=== PATIENT | female | born 1980 ===

== ENCOUNTER 2016-09-02 07:48 | Day surgery (SDC) | payer OTHER ==
[2016-09-02] MEDS ORDERED: Lactated Ringer's 500 ML IV ONE ×2 (09:02→09:10)
[2016-09-02 09:18] VITALS: O2SAT 100
[2016-09-02] MEDS ORDERED: Midazolam 2 MG/2 ML VIAL ONE (11:16)
[2016-09-02] MEDS ORDERED: Propofol 10 mg/ml Inj (20 ML) ONE (11:16)
[2016-09-02 11:52] VITALS: TEMP 97
[2016-09-02 12:02] VITALS: BP 135/74; PULSE 84; RESP 18
== END 2016-09-02 12:25 | disposition home or self-care (01) ==
LOC: H.ENDO 07:48
PROVIDERS: ATTEND Internal Medicine Gastroenterology
DX: Z12.11 Encounter for screening for malignant neoplasm of colon (principal); J45.909 Unspecified asthma, uncomplicated; I10 Essential (primary) hypertension; K64.8 Other hemorrhoids; G47.33 Obstructive sleep apnea (adult) (pediatric)

== ENCOUNTER 2018-06-26 21:00 | Emergency (ER) | payer SELFPAY ==
[2018-06-26 21:30] VITALS: BP 123/89; PULSE 94; RESP 16; O2SAT 96
[2018-06-26 21:32] VITALS: TEMP 98.7
[2018-06-26] MEDS ORDERED: Naproxen 500 MG TAB PO ONE ×2 (21:38→22:01)
--- NOTE | 2018-06-26 21:53 | ED PDOC ---
Upper Extremity Pain/Injury Time Seen by Provider: 06/26/18 21:30 Chief Complaint (Nursing): Upper Extremity Problem/Injury Chief Complaint (Provider): Upper Extremity Problem/Injury History Per: Patient History/Exam Limitations: no limitations Onset/Duration Of Symptoms: Days (x15 days) Current Symptoms Are (Timing): Still Present Additional Complaint(s): Franko Adam is a 37 year old female with a past medical history of HTN, anemia and asthma, who presents to the emergency department complaining of atraumatic left sided neck pain that radiates down to her left arm, onset x15 days ago. Patient states that the pain is worse with movement of the neck. She denies taking any medication for the pain. Patient further states that today she woke up from her nap and noticed a blue mayra on her left hand, which concerned her and prompted her ED visit. She denies any fever, chills, trauma, weakness, chest pain, or shortness of breath. PMD: [facility] Past Medical History Reviewed: Historical Data, Nursing Documentation, Vital Signs Vital Signs: Last Vital Signs Temp 98.7 F 06/26/18 21:24 Pulse 94 H 06/26/18 21:24 Resp 16 06/26/18 21:24 BP 123/89 06/26/18 21:24 Pulse Ox 96 06/26/18 21:24 - Medical History PMH: Anemia, Asthma (LAST ATTACK 3 MONTH AGO), HTN Denies: Chronic Kidney Disease - Surgical History Surgical History: No Surg Hx - Family History Family History: States: Unknown Family Hx - Immunization History Hx Tetanus Toxoid Vaccination: No Hx Influenza Vaccination: No Hx Pneumococcal Vaccination: No - Home Medications Home Medications: Ambulatory Orders Medication Instructions Recorded Atenolol [Tenormin] 25 mg PO DAILY 09/17/15 Cyclobenzaprine [Cyclobenzaprine 10 mg PO Q8 PRN #10 tab 06/26/18 HCl] Naproxen [Naprosyn] 500 mg PO BID PRN #10 tab 06/26/18 - Allergies Allergies/Adverse Reactions: Allergies Allergy/AdvReac Type Severity Reaction Status Date / Time No Known Allergies Allergy Verified 06/26/18 21:24 Review of Systems ROS Statement: Except As Marked, All Systems Reviewed And Found Negative Constitutional: Negative for: Fever, Chills Cardiovascular: Negative for: Chest Pain Respiratory: Negative for: Shortness of Breath Musculoskeletal: Positive for: Neck Pain, Arm Pain (left ) Neurological: Negative for: Weakness Physical Exam - Reviewed Nursing Documentation Reviewed: Yes Vital Signs Reviewed: Yes - Physical Exam Appears: Positive for: Non-toxic, No Acute Distress Head Exam: Positive for: ATRAUMATIC, NORMOCEPHALIC Cardiovascular/Chest: Positive for: Regular Rate, Rhythm. Negative for: Murmur Respiratory: Positive for: Normal Breath Sounds. Negative for: Respiratory Distress Pulses-Radial (L): 2+ Pulses-Radial (R): 2+ Back: Positive for: Other (left sided paracervical muscle tenderness). 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 Advised to f/u with [facility] for further evaluation but is to return to ED immediately if symptoms worsen. Pt. verbalized correct understanding of necessary f/u and care. ) Condition: Re-examined, Improved Medical Decision Making Medical Decision Making: Time: 2137 Plan: --Flexeril 10 mg PO --Naproxen 500 mg PO --Cervical spine AP & LAT xray Scribe Attestation: Documented by Anderson Mcgee, acting as a scribe for Kong Alatorre Provider Scribe Attestation: All medical record entries made by the Scribe were at my direction and personally dictated by me. I have reviewed the chart and agree that the record accurately reflects my personal performance of the history, physical exam, medical decision making, and the department course for this patient. I have also personally directed, reviewed, and agree with the discharge instructions and disposition. Disposition - Clinical Impression Clinical Impression: Cervical radiculopathy - Patient ED Disposition Is Patient to be Admitted: No - Disposition Referrals: [facility] [Outside] Disposition: Routine/Home Disposition Time: 22:30 Condition: IMPROVED Additional Instructions: FOLLOW UP WITH [facility] FOR FURTHER EVALUATION RETURN TO ED IMMEDIATELY IF SYMPTOMS WORSEN FRANKO ADAM, thank you for letting us take care of you today. Your provider was Aide Mike MD and you were treated for LT ARM/NECK PAIN. The emergency medical care you received today was directed at your acute symptoms. If you were prescribed any medication, please fill it and take as directed. It may take several days for your symptoms to resolve. Return to the Emergency Department if your symptoms worsen, do not improve, or if you have any other problems. Please contact your doctor or call one of the physicians/clinics you have been referred to that are listed on the Patient Visit Information form that is included in your discharge packet. Bring any paperwork you were given at discharge with you along with any medications you are taking to your follow up visit. Our treatment cannot replace ongoing medical care by a primary care provider outside of the emergency department. Thank you for allowing the [facility] team to be part of your care today. If you had an X-Ray or CT scan: A Radiologist will review the ED reading if any change in treatment is needed we will contact you. If you had a blood, urine, or wound culture: It will take several days for the results, if any change in treatment is needed we will contact you. If you had an STI test: It will take 48 hours for the results. Please call after 1 week if you have not heard back. Prescriptions: Cyclobenzaprine [Cyclobenzaprine HCl] 10 mg PO Q8 PRN #10 tab PRN Reason: Muscle Spasm Naproxen [Naprosyn] 500 mg PO BID PRN #10 tab PRN Reason: Pain Instructions: Radiculopathy (DC) Forms: [facility] (Setswana)
--- NOTE | 2018-06-27 09:16 | RAD ---
Date of service: 06/26/2018 PROCEDURE: Cervical Spine Radiographs. HISTORY: Pain. COMPARISON: None available. FINDINGS: BONES: Alignment maintained. No fracture. Dens Intact. DISC SPACES: Normal. SOFT TISSUES: Normal. No prevertebral soft tissue swelling. OTHER FINDINGS: None. IMPRESSION: Normal cervical spine radiographs
== END 2018-06-26 23:11 | disposition home or self-care (01) ==
LOC: H.ER 21:00
DX: M54.12 Radiculopathy, cervical region (principal); I10 Essential (primary) hypertension

== ENCOUNTER 2018-08-18 16:51 | Emergency (ER) | payer SELFPAY ==
[2018-08-18 17:41] VITALS: BP 131/91; PULSE 85; RESP 18; TEMP 98.8; O2SAT 99
[2018-08-18] MEDS ORDERED: Amoxicillin-Clav 875-125 mg Tab PO STA (17:49)
[2018-08-18] MEDS ORDERED: Dexamethasone 4 mg/1 ml IM STA (17:50)
--- NOTE | 2018-08-18 17:59 | ED PDOC ---
HPI: General Adult Time Seen by Provider: 08/18/18 17:40 Chief Complaint (Nursing): ENT Problem Chief Complaint (Provider): ENT Problem History Per: Patient History/Exam Limitations: no limitations Onset/Duration Of Symptoms: Days (x1) Have you had recent travel within the past 21 days to any of the following countries: [place], [place], [place] or [place]?: No Current Symptoms Are (Timing): Still Present Additional Complaint(s): Patient is a 37 y/o female with a PMHx of HTN, anemia, and asthma who presents to the ED bilateral throat soreness, right greater than left, with a fever of max temperature 101 onset yesterday. Patient states she has been taking Tylenol, last dose 12:30 pm today, with minimal relief. Patient denies chest pain, shortness of breath, rash, and recent travel. PCP: None Provided Past Medical History Reviewed: Historical Data, Nursing Documentation, Vital Signs Vital Signs: Last Vital Signs Temp 98.8 F 08/18/18 17:38 Pulse 85 08/18/18 17:38 Resp 18 08/18/18 17:38 BP 131/91 H 08/18/18 17:38 Pulse Ox 99 08/18/18 17:38 - Medical History PMH: Anemia, Asthma (LAST ATTACK 3 MONTH AGO), HTN Denies: Chronic Kidney Disease - Surgical History Surgical History: No Surg Hx - Family History Family History: States: Unknown Family Hx - Immunization History Hx Tetanus Toxoid Vaccination: No Hx Influenza Vaccination: No Hx Pneumococcal Vaccination: No - Home Medications Home Medications: Ambulatory Orders Medication Instructions Recorded Atenolol [Tenormin] 25 mg PO DAILY 09/17/15 Cyclobenzaprine [Cyclobenzaprine 10 mg PO Q8 PRN #10 tab 06/26/18 HCl] Naproxen [Naprosyn] 500 mg PO BID PRN #10 tab 06/26/18 Amoxicillin/Clavulanate [Augmentin 1 tab PO BID #19 tab 08/18/18 875 MG-125 MG] Naproxen [Naprosyn] 500 mg PO BID PRN #7 tab 08/18/18 - Allergies Allergies/Adverse Reactions: Allergies Allergy/AdvReac Type Severity Reaction Status Date / Time No Known Allergies Allergy Verified 08/18/18 17:38 Review of Systems ROS Statement: Except As Marked, All Systems Reviewed And Found Negative Constitutional: Positive for: Fever ENT: Positive for: Throat Pain (soreness bilaterally) Cardiovascular: Negative for: Chest Pain Respiratory: Negative for: Shortness of Breath Skin: Negative for: Rash Physical Exam - Reviewed Nursing Documentation Reviewed: Yes Vital Signs Reviewed: Yes - Physical Exam Appears: Positive for: No Acute Distress (speaking full sentences) Head Exam: Positive for: ATRAUMATIC, NORMAL INSPECTION, NORMOCEPHALIC Skin: Positive for: Normal Color, Warm, DRY Eye Exam: Positive for: EOMI, Normal appearance, PERRL ENT: Positive for: Normal ENT Inspection (able to swallow saliva), Pharyngeal Erythema (bilateral), Tonsillar Swelling. Negative for: Other (trismus) Neck: Positive for: Normal, Painless ROM, Supple Cardiovascular/Chest: Positive for: Regular Rate, Rhythm. Negative for: Murmur Respiratory: Positive for: Normal Breath Sounds. Negative for: Stridor, Respiratory Distress Lymphatic: Positive for: Adenopathy (bilateral anterior cervical) Neurological/Psych: Positive for: Alert, Oriented (x3) - ECG O2 Sat by Pulse Oximetry: 99 (RA) Pulse Ox Interpretation: Normal - Progress Condition: Re-examined, Improved Medical Decision Making Medical Decision Making: Time: 1748 Impression: Tonsillitis Plan: Urine Augmentin 1 tab PO Decadron 10 mg IM Lidocaine 15 ml PO Motrin 800 mg PO Throat Culture Scribe Attestation: Documented by Mihai Aldana, acting as a scribe Mayra Peña PA-C. Provider Scribe Attestation: All medical record entries made by the Scribe were at my direction and personally dictated by me. I have reviewed the chart and agree that the record accurately reflects my personal performance of the history, physical exam, medical decision making, and the department course for this patient. I have also personally directed, reviewed, and agree with the discharge instructions and disposition. Disposition - Clinical Impression Clinical Impression: Tonsillitis - Patient ED Disposition Is Patient to be Admitted: No - Disposition Referrals: [facility] [Outside] Disposition: Routine/Home Disposition Time: 17:55 Condition: IMPROVED Additional Instructions: FOLLOW UP WITH [facility] FOR FURTHER EVALUATION RETURN TO ED IMMEDIATELY IF SYMPTOMS WORSEN FRANKO ADAM, thank you for letting us take care of you today. Your provider was Darshana Hernandez MD and you were treated for FEVER. The emergency medical care you received today was directed at your acute symptoms. If you were prescribed any medication, please fill it and take as directed. It may take several days for your symptoms to resolve. Return to the Emergency Department if your symptoms worsen, do not improve, or if you have any other problems. Please contact your doctor or call one of the physicians/clinics you have been referred to that are listed on the Patient Visit Information form that is included in your discharge packet. Bring any paperwork you were given at discharge with you along with any medications you are taking to your follow up visit. Our treatment cannot replace ongoing medical care by a primary care provider outside of the emergency department. Thank you for allowing the [facility] team to be part of your care today. If you had an X-Ray or CT scan: A Radiologist will review the ED reading if any change in treatment is needed we will contact you. If you had a blood, urine, or wound culture: It will take several days for the results, if any change in treatment is needed we will contact you. If you had an STI test: It will take 48 hours for the results. Please call after 1 week if you have not heard back. Prescriptions: Amoxicillin/Clavulanate [Augmentin 875 MG-125 MG] 1 tab PO BID #19 tab Naproxen [Naprosyn] 500 mg PO BID PRN #7 tab PRN Reason: Pain Instructions: Sore Throat, Adult (DC) Forms: [employer] (Welsh), [facility] ED School/Work Excuse
[2018-08-18] MEDS ORDERED: Amoxicillin-Clav 875-125 mg Tab PO ONE (18:03)
== END 2018-08-18 19:05 | disposition home or self-care (01) ==
LOC: H.ER 16:51
DX: J03.90 Acute tonsillitis, unspecified (principal)
CPT/HCPCS: 87070; 96372; 99282; J1100